=== PATIENT | male | born 1995 | race Two or more races ===

== ENCOUNTER → 2024-05-07 | Emergency (ER) | payer OTHER ==
[~2024-05-07] VITALS: Ht 188 cm; Wt 79.4 kg
[~2024-05-07] MED LIST: 0.9 % SODIUM CHLORIDE 1,000 ML IV STA; FAMOTIDINE/PF 20 MG/2 ML VIAL IV PUSH STA; FAMOTIDINE/PF 20 MG/2 ML VIAL ONE; HYOSCYAMINE SULFATE 0.125 MG TAB.SUBL ONE; HYOSCYAMINE SULFATE 0.125 MG TAB.SUBL SL ONE; PROMETHAZINE HCL 50 MG/ML AMPUL IM ONE; PROMETHAZINE HCL 50 MG/ML AMPUL IM STA
[2024-05-08 01:19] LABS: HEMATOCRIT 51.8 % (39.0-48.0); HEMOGLOBIN 17.7 g/dL (13-16.00); MEAN CELL VOLUME 86.4 fL (80.0-100.00); MEAN CORPUSCULAR HEMOGLOBIN 29.5 pg (27.00-32.0); MEAN CORPUSCULAR HGB CONC 34.1 g/dl (32.0-36.0); PLATELET COUNT 170 K/uL (150-450); RED CELL DISTRIBUTION WIDTH 13.3 % (11.5-14.5)
[2024-05-08 02:36] LABS: CALCIUM 9.4 mg/dL (8.5-10.1); CREATININE SERUM 1.34 mg/dL (0.70-1.30); GFR 63.47; POTASSIUM 3.86 mEq/L (3.5-5.1)
== END | disposition home or self-care (01) ==
LOC: ER 21:29
DX: K52.89 Other specified noninfective gastroenteritis and colitis (principal); Z20.822 Contact with and (suspected) exposure to COVID-19